=== PATIENT | female | born 1990 | race Hispanic/Latino ===

== ENCOUNTER 2017-05-04 13:11 | Emergency (ER) | payer OTHER ==
[2017-05-04] MEDS ORDERED: Bacitracin 500 Units/gm Oint Foilpak UD ONE (14:21)
--- NOTE | 2017-05-04 14:31 | C.PDOC ---
History Of Present Illness 26 y/o female presents to the ED for evaluation of right hand 4th digit pain and numbness. Patient states her right hand got caught in the door when she fell and also complains of pain to left hand palm. Otherwise, denies any head injury, sensory changes, or any other associated symptoms at this time. Time Seen by Provider: 05/04/17 13:26 Chief Complaint (Nursing): Upper Extremity Problem/Injury History Per: Patient History/Exam Limitations: no limitations Onset/Duration Of Symptoms: Hrs Current Symptoms Are (Timing): Still Present Quality: "Pain" Exacerbating Factor(s): Nothing Recent travel outside of the [place]: No Additional History Per: Patient Past Medical History Reviewed: Historical Data, Nursing Documentation, Vital Signs Vital Signs: Last Vital Signs Temp 98.2 F 05/04/17 14:25 Pulse 78 05/04/17 14:25 Resp 18 05/04/17 14:25 BP 129/86 05/04/17 14:25 Pulse Ox 100 05/04/17 14:25 - Medical History PMH: Asthma, Bipolar Disorder, Depression, Hepatitis (C) - [facility] Procedures MYOTOMY (08/05/14) Family History: States: Unknown Family Hx - Social History Hx Tobacco Use: Yes Hx Alcohol Use: Yes Hx Substance Use: Yes (DAILY USE OF MARIJUANA) - Immunization History Hx Tetanus Toxoid Vaccination: No Hx Influenza Vaccination: No Hx Pneumococcal Vaccination: No Review Of Systems Except As Marked, All Systems Reviewed And Found Negative. Constitutional: Negative for: Fever, Chills Musculoskeletal: Positive for: Hand Pain (right 4th digit) Skin: Negative for: Rash, Bruising Neurological: Negative for: Weakness, Numbness Physical Exam - Physical Exam Appears: Non-toxic, No Acute Distress Skin: Warm, Dry, Ecchymosis (distal fingertip of right hand 4th digit), Other ( false nail was removed, nail is intact, no subungual hematoma) Head: Atraumatic, Normacephalic Eye(s): bilateral: Normal Inspection Extremity: Normal ROM (FROM of right hand digits), Tenderness (distal aspect of right hand 4th digit), Capillary Refill (< 2 sec.), No Deformity, Swelling ( distal aspect of right hand 4th digit and to left proximal palm) Pulses: Left Radial: Normal, Right Radial: Normal Neurological/Psych: Oriented x3, Normal Speech, Normal Motor, Normal Sensation ED Course And Treatment - Other Rad Left hand x-ray X-Ray: Viewed By Me, Read By Radiologist Interpretation: FINDINGS: BONES: Normal bone alignment. No acute fracture. JOINTS: Normal. SOFT TISSUES: Normal. OTHER FINDINGS: None. IMPRESSION: No acute fracture or dislocation. Right hand 4th digit x-ray X-Ray: Viewed By Me, Read By Radiologist Interpretation: FINDINGS: RIGHT RING FINGER: There is an acute nondisplaced fracture in the tuft of the distal phalanx. Remainder of the right hand (as seen on the AP view) grossly unremarkable. JOINTS: Normal. No dislocation. SOFT TISSUES: Mild soft tissue swelling in the distal 4th finger. OTHER FINDINGS: None. IMPRESSION: Acute nondisplaced fracture in the tuft of the distal phalanx with mild soft tissue swelling. Progress Note: Left hand x-ray and right hand 4th digit x-ray ordered and reviewed. Patient was treated with Tylenol. Tuft fracture seenon xray. Aluminum finger applied by CP. On reassessment, patient is resting comfortably, and is in no acute distress. Patient was instructed to follow up with physician/clinic in 1-2 days. Disposition Counseled Patient/Family Regarding: Studies Performed, Diagnosis, Need For Followup, Rx Given - Disposition Referrals: Jose Enrique العلي MD [Staff Provider] - Disposition: HOME/ ROUTINE Disposition Time: 15:25 Condition: STABLE Additional Instructions: Your xray shows a fracture. It is very important you follow up with orthopedic within 1 week. A splint has been applied which is a temporary, must wear for 4 weeks. Take pain medication as needed. 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 - Scribe Statement The provider has reviewed the documentation as recorded by the Scribe Antonia Handy All medical record entries made by the Scribe were at my direction and personally dictated by me. I have reviewed the chart and agree that the record accurately reflects my personal performance of the history, physical exam, medical decision making, and the department course for this patient. I have also personally directed, reviewed, and agree with the discharge instructions and disposition.
--- NOTE | 2017-05-04 14:34 | RAD ---
PROCEDURE: Left Hand Radiographs. HISTORY: pain s.p injury COMPARISON: None. FINDINGS: BONES: Normal bone alignment. No acute fracture. JOINTS: Normal. SOFT TISSUES: Normal. OTHER FINDINGS: None. IMPRESSION: No acute fracture or dislocation.
--- NOTE | 2017-05-04 14:36 | RAD ---
PROCEDURE: Right ring finger radiographs. HISTORY: Pain s.p injury COMPARISON: None. TECHNIQUE: AP radiograph of the right hand, as well as spot oblique and lateral images of ring finger were obtained. FINDINGS: RIGHT RING FINGER: There is an acute nondisplaced fracture in the tuft of the distal phalanx. Remainder of the right hand (as seen on the AP view) grossly unremarkable. JOINTS: Normal. No dislocation. SOFT TISSUES: Mild soft tissue swelling in the distal 4th finger. OTHER FINDINGS: None. IMPRESSION: Acute nondisplaced fracture in the tuft of the distal phalanx with mild soft tissue swelling.
[2017-05-04 14:52] VITALS: BP 129/86; PULSE 78; RESP 18; TEMP 98.2; O2SAT 100
== END 2017-05-04 14:25 | disposition home or self-care (01) ==
LOC: C.ER 13:11
DX: S62.664A Nondisplaced fracture of distal phalanx of right ring finger, initial encounter for closed fracture (principal); W23.0XXA Caught, crushed, jammed, or pinched between moving objects, initial encounter